=== PATIENT | female | born 1955 | race Caucasian/White ===

== ENCOUNTER 2017-11-07 20:33 | Emergency (ER) | payer OTHER ==
[2017-11-07] MEDS ORDERED: Sodium Chloride 0.9% 10 ML Syringe FLUSH PRN (20:46)
[2017-11-07] MEDS ORDERED: Ondansetron 4 MG/2 ML SDV IVPUSH ONE (20:46)
[2017-11-07 20:49] VITALS: BP 141/63
--- NOTE | 2017-11-07 20:52 | EDM.PDOC ---
ED HPI GENERAL MEDICAL PROBLEM - General Chief Complaint: General Stated Complaint: Dizziness, N/V Time Seen by Provider: 11/07/17 20:33 Source of Information: Reports: Patient History Limitations: Reports: No Limitations - History of Present Illness INITIAL COMMENTS - FREE TEXT/NARRATIVE: Patient comes into the emergency department tonight with a three-hour complaint of dizziness with movement. Patient's had 1-2 episodes in the past but they've only lasted a short period of time with resolution on their own. Tonight right before supper she had extremely dizzy while doing a puzzle she went to lay down and that the symptoms had resolved when she stood up she became extremely dizzy and vomited on 2 different occasions. The patient laying still and is semi- laying position makes her feel the best. Lying flat or sitting upright quickly causes extreme nausea and dizziness. Onset: Sudden - Related Data Allergies Allergy/AdvReac Type Severity Reaction Status Date / Time No Known Allergies Allergy Verified 11/07/17 20:49 Home Meds: Home Meds . [No Known Home Meds] 08/19/14 [History] Past Medical History - Past Health History Medical/Surgical History: Denies Medical/Surgical History ED ROS GENERAL - Review of Systems Review Of Systems: See Below Constitutional: Reports: No Symptoms HEENT: Reports: No Symptoms Respiratory: Reports: No Symptoms Cardiovascular: Reports: No Symptoms Endocrine: Reports: No Symptoms GI/Abdominal: Reports: No Symptoms : Reports: No Symptoms Musculoskeletal: Reports: No Symptoms Skin: Reports: No Symptoms Neurological: Reports: Dizziness Psychiatric: Reports: No Symptoms Hematologic/Lymphatic: Reports: No Symptoms Immunologic: Reports: No Symptoms ED EXAM, GENERAL - Physical Exam Exam: See Below Exam Limited By: No Limitations General Appearance: Alert, WD/WN, No Apparent Distress Respiratory/Chest: No Respiratory Distress, Lungs Clear, Normal Breath Sounds, No Accessory Muscle Use Cardiovascular: Normal Peripheral Pulses GI/Abdominal: Normal Bowel Sounds, Soft, Non-Tender, No Distention, No Abnormal Bruit Back Exam: Normal Inspection, Full Range of Motion Extremities: Normal Inspection Neurological: Alert, Oriented, Normal Cognition, Normal Gait, Normal Reflexes, No Motor/Sensory Deficits, Other (dizziness with movement of head from side to side noted with instant nausea ) Psychiatric: Normal Affect, Normal Mood Skin Exam: Warm, Dry, Intact, Normal Color Course - Vital Signs Last Recorded V/S: Last Vital Signs Temp 36.4 C 11/07/17 20:33 Pulse 80 11/07/17 20:33 Resp 16 11/07/17 20:33 BP 141/63 H 11/07/17 20:33 Pulse Ox 98 11/07/17 20:33 - Orders/Labs/Meds Orders: Active Orders 24 hr Category Date Time Status Lactated Ringers [Ringers, Lactated] 1,000 ml Med 11/07/17 20:53 Ordered IV .BOLUS Sodium Chloride 0.9% [Saline Flush] Med 11/07/17 20:46 Ordered 10 ml FLUSH ASDIRECTED PRN Peripheral IV Insertion Adult [OM.PC] Stat Oth 11/07/17 20:46 Ordered Medication Orders Lactated Ringer's (Ringers, Lactated) 1,000 mls @ 1,000 mls/hr IV .BOLUS ONE Stop: 11/07/17 21:52 Last Admin: 11/07/17 20:58 Dose: 1,000 mls/hr Sodium Chloride (Saline Flush) 10 ml FLUSH ASDIRECTED PRN PRN Reason: Keep Vein Open Meds: Medications Generic Name Dose Route Start Last Admin Trade Name Freq PRN Reason Stop Dose Admin Lactated Ringer's 1,000 mls @ 1,000 mls/hr 11/07/17 20:53 11/07/17 20:58 Ringers, Lactated IV 11/07/17 21:52 1,000 mls/hr .BOLUS ONE Administration Sodium Chloride 10 ml 11/07/17 20:46 Saline Flush FLUSH ASDIRECTED PRN Keep Vein Open Discontinued Medications Generic Name Dose Route Start Last Admin Trade Name Freq PRN Reason Stop Dose Admin Ondansetron HCl 4 mg 11/07/17 20:46 11/07/17 20:58 Zofran IVPUSH 11/07/17 20:47 4 mg ONETIME ONE Administration Scopolamine 1.5 mg 11/07/17 21:20 11/07/17 21:24 Transderm-Scop TRDERM 11/07/17 21:21 1.5 mg NOW STA Administration - Re-Assessments/Exams Free Text/Narrative Re-Assessment/Exam: 11/07/17 21:54 symptoms have resolved. negative re-assessment. vitals within normal limits for pt. Departure - Departure Time of Disposition: 22:00 Disposition: Home, Self-Care 01 Condition: Good Clinical Impression: Vertigo - Discharge Information Instructions: Vertigo, [id number] Forms: ED Department Discharge Additional Instructions: 1. Rest 2. Rise from the laying the position slowly 3. Can purchase scopolamine patch over the counter to help 4. If symptoms return recommendations to see a physical therapist 5. activity and diet as tolerated - My Orders Last 24 Hours: My Active Orders 11/07/17 20:46 Sodium Chloride 0.9% [Saline Flush] 10 ml FLUSH ASDIRECTED PRN Peripheral IV Insertion Adult [OM.PC] Stat 11/07/17 20:53 Lactated Ringers [Ringers, Lactated] 1,000 ml IV .BOLUS - Assessment/Plan Last 24 Hours: My Active Orders 11/07/17 20:46 Sodium Chloride 0.9% [Saline Flush] 10 ml FLUSH ASDIRECTED PRN Peripheral IV Insertion Adult [OM.PC] Stat 11/07/17 20:53 Lactated Ringers [Ringers, Lactated] 1,000 ml IV .BOLUS Assessment:: 1. Dizziness 2. Nausea Plan: 1. IV fluids in ER 2. Zofran for nausea given 3. Scopolamine patch given for dizziness 4. Meclizine given prior to discharge to help if symptoms return throughout the night.
[2017-11-07] MEDS ORDERED: Lactated Ringers 1,000 ML IV ONE (20:53)
[2017-11-07] MEDS ORDERED: Scopolamine 1.5 MG Transdermal Patch TRDERM STA (21:20)
[2017-11-07] MEDS ORDERED: Meclizine 25 MG Tab PO ONE (21:50)
== END 2017-11-07 22:07 | disposition home or self-care (01) ==
LOC: VM.ED 20:33
DX: R42 Dizziness and giddiness (principal)
CPT/HCPCS: 96361; 96374; 99284; A9270-GY; J2405; J7120

== ENCOUNTER 2021-05-31 06:39 | Day surgery (SDC) | payer MEDICARE, OTHER ==
[2021-05-31] MEDS ORDERED: Sodium Chloride 0.9% 10 ML Syringe FLUSH PRN (07:00)
[2021-05-31] MEDS ORDERED: Lactated Ringers 1,000 ML IV SCH (07:00)
[2021-05-31] MEDS ORDERED: Propofol 200 MG/20 ML SDV ONE ×2 (08:18→08:39)
[2021-05-31] MEDS ORDERED: fentaNYL 100 MCG/2 ML SDV ONE (08:19)
[2021-05-31 09:35] VITALS: BP 123/53; PULSE 71
--- NOTE | 2021-05-31 10:19 | OR ---
PREOPERATIVE DIAGNOSIS: Screening colonoscopy. POSTOPERATIVE DIAGNOSES: Colon polyps. ANESTHESIA: MAC anesthesia. COMPLICATIONS: None. BLOOD LOSS: Minimal. FINDINGS: 1. Cecal polyp, 7 mm, hot snare. 2. Transverse polyp, 2 mm, cold forceps. Start time 0833, cecum 0838, stop 0858. BOWEL PREP: [place] class 3. INDICATIONS: Hien Kurtz is a 66-year-old female who is here for a screening colonoscopy. Her last scope was 10 years ago. She has no bloody or dark black stools. Her mom had colon cancer in her 80s. DESCRIPTION OF PROCEDURE: Informed consent was obtained. Patient was brought to procedure room, placed in left lateral decubitus position. MAC anesthesia was induced per Anesthesia colleagues without incident. Colonoscope was introduced to the rectum and advanced all the way to the cecum. The appendiceal orifice and terminal ileum were photographed. The colonoscope was then slowly withdrawn. No pathology was identified except for as mentioned in the above finding section. A retroflexed view was obtained, and the colonoscope was removed. Patient was woken from anesthesia without incident. PATHOLOGY: Recommend repeat screening colonoscopy in years. RKM: 05/31/2021 09:05:29 MODL: 05/31/2021 09:26:46 /[id number]
== END 2021-05-31 10:15 | disposition home or self-care (01) ==
LOC: VM.SDS 06:39
PROVIDERS: ATTEND Student in an Organized Health Care Education/Training Program
DX: Z12.11 Encounter for screening for malignant neoplasm of colon (principal); D12.0 Benign neoplasm of cecum; D12.3 Benign neoplasm of transverse colon; E55.9 Vitamin D deficiency, unspecified; E66.9 Obesity, unspecified; Z98.890 Other specified postprocedural states; Z80.0 Family history of malignant neoplasm of digestive organs; Z79.01 Long term (current) use of anticoagulants
CPT/HCPCS: 00811; 88305; J2704; J3010; J7120